=== PATIENT | male | born 1940 | race Caucasian/White ===

== ENCOUNTER 2017-10-04 00:22 | Emergency (ER) | payer MEDICARE, BC ==
[2017-10-04] MEDS ORDERED: Meclizine 12.5 MG Tab PO ONE (01:05)
--- NOTE | 2017-10-04 01:08 | EDM.PDOC ---
ED HPI GENERAL MEDICAL PROBLEM - General Chief Complaint: Neuro Symptoms/Deficits Stated Complaint: DIZZY Time Seen by Provider: 10/04/17 00:37 Source of Information: Reports: Patient History Limitations: Reports: No Limitations - History of Present Illness INITIAL COMMENTS - FREE TEXT/NARRATIVE: The patient is a 77-year-old male with a chief complaint of dizziness. He states that he had severe dizziness when he first got out of bed this morning. It was like the room was spinning. It resolved. He then noticed it again tonight when he laid down to go to bed. Describes it as a room spinning sensation. He had some minimal nausea at the time but no vomiting. No headache. Dizziness is much better now. States he doesn't have any dizziness at the moment. No weakness. No additional complaint. No ear pain or tinnitus. No recent upper respiratory infection. No vomiting or diarrhea or any other concern. No chest pain or shortness of breath. - Related Data Allergies Allergy/AdvReac Type Severity Reaction Status Date / Time No Known Allergies Allergy Verified 10/04/17 00:31 Home Meds: Home Meds Aspirin 81 mg PO BEDTIME 10/04/17 [History] Meclizine [Antivert] 12.5 mg PO TID PRN #30 tablet 10/04/17 [Rx] Rosuvastatin Calcium [Crestor] 20 mg PO DAILY 10/04/17 [History] Past Medical History HEENT History: Reports: Impaired Vision Other HEENT History: Wears glasses Cardiovascular History: Reports: Bypass, Heart Murmur, High Cholesterol Other Musculoskeletal History: Cyst removed from foot - Past Surgical History HEENT Surgical History: Reports: Cataract Surgery, Tonsillectomy Cardiovascular Surgical History: Reports: Coronary Artery Bypass Social & Family History - Tobacco Use Smoking Status *Q: Former Smoker Used Tobacco, but Quit: Yes Month Tobacco Last Used: 2001 - Recreational Drug Use Recreational Drug Use: No ED ROS GENERAL - Review of Systems Review Of Systems: See Below Constitutional: Reports: No Symptoms HEENT: Reports: Vertigo. Denies: Ear Pain, Hearing Loss, Vision Change Respiratory: Denies: Shortness of Breath Cardiovascular: Denies: Chest Pain Endocrine: Reports: No Symptoms GI/Abdominal: Denies: Abdominal Pain, Vomiting Musculoskeletal: Reports: No Symptoms Neurological: Reports: Dizziness. Denies: Confusion, Headache, Numbness, Paresthesia, Difficulty Walking, Weakness ED EXAM, NEURO - Physical Exam Exam: See Below Exam Limited By: No Limitations General Appearance: Alert, WD/WN, No Apparent Distress Eye Exam: Bilateral Eye: Normal Inspection, Nystagmus (few beats horizontal nystagmus with left lat eye movements), PERRL Ears: Normal External Exam Nose: Normal Inspection Throat/Mouth: Normal Inspection, Normal Oropharynx, Normal Voice, No Airway Compromise Head Exam: Atraumatic, Normocephalic Neck: Normal Inspection, Supple, Non-Tender, Full Range of Motion Respiratory/Chest: No Respiratory Distress, Lungs Clear, Normal Breath Sounds, Chest Non-Tender Cardiovascular: Normal Peripheral Pulses, Regular Rate, Rhythm GI/Abdominal: Soft, Non-Tender, No Distention Neurological: Alert, Normal Mood/Affect, Normal Dorsiflexion, CN II-XII Intact, Normal Plantar Flexion, No Motor/Sensory Deficits, Oriented x 3 Psychiatric: Normal Affect, Normal Mood Skin Exam: Warm, Dry, Intact, Normal Color, No Rash Course - Vital Signs Last Recorded V/S: Last Vital Signs Temp 36.2 C 10/04/17 00:31 Pulse 56 L 10/04/17 00:31 Resp 17 10/04/17 00:31 BP 142/72 H 10/04/17 00:31 Pulse Ox 94 L 10/04/17 00:31 - Orders/Labs/Meds Meds: Medications Discontinued Medications Generic Name Dose Route Start Last Admin Trade Name Freq PRN Reason Stop Dose Admin Meclizine HCl 25 mg 10/04/17 01:05 10/04/17 01:18 Antivert PO 10/04/17 01:06 25 mg ONETIME ONE Administration - Re-Assessments/Exams Free Text/Narrative Re-Assessment/Exam: 10/04/17 01:07 Hx very consistent with benign positional vertigo. Well appearing, no additional neurological symptoms. Departure - Departure Time of Disposition: 01:11 Disposition: Home, Self-Care 01 Clinical Impression: Vertigo - Discharge Information Prescriptions: Meclizine [Antivert] 12.5 mg PO TID PRN #30 tablet PRN Reason: Dizziness Instructions: Vertigo, [id number] Referrals: PCP,Not In Area [Primary Care Provider] - Forms: ED Department Discharge Additional Instructions: 1. Take meclizine as needed for dizziness. 2. No driving until your dizziness resolves 3. Follow up with your primary doctor if not improving 4. Return to the ED if worse or if you new concerning symptoms, including chest pain, difficulty breathing, weakness, confusion, or any other concerning symptoms
== END 2017-10-04 01:29 | disposition home or self-care (01) ==
LOC: JD.ED 00:22
DX: R42 Dizziness and giddiness (principal); Z79.899 Other long term (current) drug therapy; Z87.891 Personal history of nicotine dependence
CPT/HCPCS: 99284; A9270; 99282

== ENCOUNTER 2024-11-05 09:42 | Day surgery (SDC) | payer MEDICARE, BC ==
[~2024-11-05 09:42] MED LIST: Lactated Ringers 1,000 ML IV ONE; Propofol 200 MG/20 ML SDV ONE; ceFAZolin 2 GM Vial ONE; ePHEDrine 50 MG/ML SDV ONE
[2024-11-05] MEDS ORDERED: fentaNYL 100 MCG/2 ML SDV IVPUSH PRN (09:52)
[2024-11-05] MEDS ORDERED: HYDROmorphone 0.5 MG/0.5 ML Syringe IVPUSH PRN (09:52)
[2024-11-05] MEDS ORDERED: Ondansetron 4 MG/2 ML SDV IVPUSH PRN (09:52)
[2024-11-05] MEDS ORDERED: Ropivacaine 0.5% 5 MG/ML 30 ML SDV ONE (09:59)
[2024-11-05] MEDS ORDERED: Lidocaine 1% 2 ML ONE (10:23)
[2024-11-05] MEDS ORDERED: Lactated Ringers 1,000 ML ONE (10:42)
[2024-11-05] MEDS: Morphine 8 MG, EPINEPHrine 0.3 MG, Cefuroxime 750 MG, Ketorolac 30 MG, Sodium Chloride ... PRN (10:48)
[2024-11-05] MEDS: VANCOmycin 1 GM SDV ONE (10:52)
[2024-11-05] MEDS: Tranexamic Acid 1,000 MG/10 ML Vial ONE (10:52)
[2024-11-05] MEDS: Acetaminophen/HYDROcodone 325-5 MG Tab PO PRN (12:06)
== END 2024-11-05 13:30 | disposition home or self-care (01) ==
LOC: JD.SDS 09:42
PROVIDERS: ATTEND Orthopaedic Surgery
DX: M17.12 Unilateral primary osteoarthritis, left knee (principal); I10 Essential (primary) hypertension; I25.10 Atherosclerotic heart disease of native coronary artery without angina pectoris; Z79.899 Other long term (current) drug therapy
CPT/HCPCS: 0055T; 27447; 64447; 73560; 97116; 97161; A9270; C1713; C1776; J0171; J0690; J0697; J1885; J2272; J2704; J2795; J7120; 01400; 99100; J3490